=== PATIENT | male | born 1950 | race Caucasian/White ===

== ENCOUNTER 2021-05-09 10:23 | Inpatient (IN) | payer OTHER, MEDICAID, SELFPAY ==
[~2021-05-09] VITALS: Ht 180.3 cm; Wt 83.9 kg
[2021-05-09 10:33] VITALS: BP 115/81
--- NOTE | 2021-05-09 11:01 | NUR ---
ANNETTE SWAB COLLECTED AND HANDED TO BETTINA ENGEL
--- NOTE | 2021-05-09 11:30 | NUR ---
70 Y/O MALE BIB SISTER C/O RUQ ABD PAIN, VOMITING X YESTERDAY. PT STATES 10/ SHARP PAIN. NON RADIATING. SOFT NON TENDER. PMH: PROSTATE CANCER, RIGHT FUMER FRACTURE & SUGERY 3 MONTHS AGO JACQUIE
[2021-05-09 11:36] LABS: APPEARANCE,URINE CLEAR (CLEAR); BILIRUBIN,URINE 2+ (NEGATIVE); BLOOD, URINE TRACE-I (NEGATIVE); COLOR,URINE ORANGE (YELLOW); LEUKOCYTE ESTERASE ,URINE NEGATIVE (NEGATIVE); NITRITE, URINE POSITIVE (NEGATIVE); PH,URINE 5.5 (5.0-9.0); UGLUCOSE NEGATIVE (NEGATIVE)
--- NOTE | 2021-05-09 11:47 | NUR ---
BLOOD WORK COLLECTED AND HANDED TO BETTINA ENGEL
[2021-05-09 11:53] LABS: BASOPHILS % (AUTO) 0.2 % (0.0-2.0); HEMATOCRIT 39.8 % (36-52); HEMOGLOBIN 13.4 g/dL (12.0-18.0); LYMPHOCYTES # (AUTO) 0.9 K/uL (2.0-11.5); LYMPHOCYTES % (AUTO) 4.7 % (20.5-51.1); MEAN CORPUSCULAR HEMOGLOBIN 28 pg (27-31); MEAN CORPUSCULAR HGB CONC 34 g/dL (33-37); MEAN CORPUSCULAR VOLUME 84.1 fL (80-94); MONOCYTES # (AUTO) 0.8 K/uL (0.8-1.0); MONOCYTES % (AUTO) 3.9 % (1.7-9.3); NEUTROPHILS % (AUTO) 91.2 % (42.2-75.2); PLATELET COUNT (AUTO) 247 K/uL (140-450); RED BLOOD CELL COUNT(AUTO) 4.73 MIL/uL (4.20-6.10); WHITE BLOOD COUNT (AUTO) 19.7 K/uL (4.8-10.8)
[2021-05-09 12:18] LABS: ALBUMIN 3.7 g/dL (3.4-5.0); ANION GAP 14.6 (8-16); CARBON DIOXIDE 26.4 mmol/L (21-32); CREATININE 0.8 mg/dL (0.6-1.3); TOTAL BILIRUBIN 1.4 mg/dL (0.0-1.0)
[2021-05-09] MEDS ORDERED: ONDANSETRON 4 MG/2 ML VIAL IVP ONE (12:35)
[2021-05-09] MEDS ORDERED: MORPHINE SULFATE 4 MG/ML SYR IVP ONE (12:35)
[2021-05-09 13:17] LABS: RBC,URINE 0-5 /HPF (0-5); TRICHOMONAS,URINE None Seen /HPF (None Seen); WBC,URINE 0-5 /HPF (0-5); YEAST,URINE None Seen /HPF (None Seen)
[2021-05-09 13:18] LABS: CALCIUM OXALATE CRYSTALS,UR None Seen /HPF (None Seen); COARSE GRANULAR CASTS,URINE None Seen /LPF (None Seen); FINE GRANULAR CASTS,URINE None Seen /LPF (None Seen); HYALINE CASTS, URINE None Seen /LPF (None Seen); OTHER CASTS, URINE None Seen /LPF (None Seen); OTHER CRYSTALS,URINE None Seen /HPF (None Seen); RED BLOOD CELL CASTS,URINE None Seen /LPF (None Seen); TRIPLE PHOSPHATE CRYSTAL,UR None Seen /HPF (None Seen); URIC ACID CRYSTALS,URINE None Seen /HPF (None Seen); URINE AMORPHOUS URATE 1+ /HPF (None Seen); WAXY CASTS,URINE None Seen /LPF (None Seen)
[2021-05-09] MEDS ORDERED: PIPERACILLIN/TAZOBACTAM 3.375 GM in DEXTROSE 5% 50 ML IV ONE (14:05)
[2021-05-09] MEDS ORDERED: SIMV10TA1 PO (14:24)
[2021-05-09] MEDS ORDERED: TAMS0.4C96 PO (14:24)
[2021-05-09] MEDS ORDERED: APIX5TAB PO (14:24)
[2021-05-09] MEDS ORDERED: PRED5TAB7 PO (14:24)
[2021-05-09] MEDS ORDERED: ABIR250T PO (14:29)
[2021-05-09] MEDS ORDERED: BICA50TA47 PO (14:29)
[2021-05-09] MEDS ORDERED: MULT-1301 PO (14:29)
[2021-05-09] MEDS ORDERED: PIPERACILLIN/TAZOBACTAM 3.375 GM VIAL IV ONE ×2 (14:50→23:57)
[2021-05-09] MEDS ORDERED: MORPHINE SULFATE 2 MG/ML SYR IVP PRN ×2 (15:25→21:25)
[2021-05-09] MEDS ORDERED: MORPHINE SULFATE 4 MG/ML SYR IVP PRN (15:25)
--- NOTE | 2021-05-09 16:51 | NUR ---
OH AT BEDSIDE EXAMINING PT
--- NOTE | 2021-05-09 17:00 | NUR ---
ULTRASOUND AT BEDSIDE
[2021-05-09] MEDS ORDERED: NACL 0.9% 1,000 ML IV ONE (17:25)
[2021-05-09 19:07] LABS: ANION GAP 8.9 (8-16); CARBON DIOXIDE 29.7 mmol/L (21-32); CREATININE 0.8 mg/dL (0.6-1.3); POTASSIUM 3.6 mmol/L (3.5-5.1)
--- NOTE | 2021-05-09 19:15 | NUR ---
Pt report given to SHWETHA CLAY. Transfer of care at this time.
[2021-05-09 19:25] LABS: TOTAL BILIRUBIN 1.7 mg/dL (0.0-1.0)
--- NOTE | 2021-05-09 19:35 | NUR ---
report given to Jessa CLAY from OR. pt currently a/o x 4, gcs 15.
[2021-05-09] MEDS ORDERED: HYDROmorphone PFS 2 MG/ML SYR ONE (19:57)
[2021-05-09] MEDS ORDERED: PROPOFOL 200 MG/20 ML VIAL IV ONE ×2 (19:57)
[2021-05-09] MEDS ORDERED: ROCURONIUM 50 MG/5 ML VIAL IV ONE (19:57)
[2021-05-09] MEDS ORDERED: DOCUSATE SODIUM 100 MG GELCAP PO PRN (20:05)
[2021-05-09] MEDS ORDERED: ACETAMINOPHEN 325 MG TAB PO PRN (20:05)
[2021-05-09] MEDS ORDERED: ZOLPIDEM 5 MG TAB PO PRN (20:05)
[2021-05-09] MEDS ORDERED: ONDANSETRON 4 MG/2 ML VIAL IM/IVP PRN (20:05)
[2021-05-09] MEDS ORDERED: NACL 0.9% 1,000 ML IV SCH (20:05)
[2021-05-09] MEDS ORDERED: MAG SULF 2000 MG/WATER PREMIX 50 ML IV PRN (20:05)
[2021-05-09] MEDS ORDERED: POTASSIUM CHLORIDE 10 MEQ TABER PO PRN (20:05)
[2021-05-09] MEDS ORDERED: LORazepam 2 MG/ML VIAL IM/IVP PRN (20:05)
[2021-05-09] MEDS ORDERED: LIDOCAINE/EPI MPF 1%1:200000 30 ML VIAL INJ ONE (20:07)
[2021-05-09] MEDS ORDERED: BUPIVACAINE-MPF/EPI 0.25% 10 ML VIAL INJ ONE (20:07)
[2021-05-09] MEDS ORDERED: LIDOCAINE 1% 500 MG/50 ML VIAL ONE (20:09)
[2021-05-09] MEDS ORDERED: ePHEDrine 50 MG/ML VIAL ONE (20:17)
[2021-05-09] MEDS ORDERED: DEXAMETHASONE 4 MG/ML VIAL ONE (20:26)
[2021-05-09] MEDS ORDERED: METOCLOPRAMIDE 10 MG/2 ML INJ VIAL ONE (20:26)
[2021-05-09] MEDS ORDERED: ONDANSETRON 4 MG/2 ML VIAL ONE (20:26)
[2021-05-09] MEDS ORDERED: KETOROLAC 30 MG/ML VIAL ONE (20:35)
[2021-05-09] MEDS: SIMVASTATIN 10 MG TAB PO SCH (21:00)
[2021-05-09] MEDS: predniSONE 5 MG TAB PO SCH (21:00)
[2021-05-09] MEDS ORDERED: GLYCOPYRROLATE 0.2 MG/ML VIAL ONE ×2 (21:02)
[2021-05-09] MEDS ORDERED: NEOSTIGMINE 1:1000 10 MG/10 ML VIAL ONE (21:02)
[2021-05-09 21:21] LABS: CHOL/HDL RATIO 3.5 (1-4.5); THYROID STIMULATING HORMONE 0.88 uIU/mL (0.34-3.74)
[2021-05-09] MEDS ORDERED: HYDROmorphone 1 MG/ML AMP IVP PRN ×2 (21:25→21:35)
[2021-05-09] MEDS ORDERED: ONDANSETRON 4 MG/2 ML VIAL IV PRN (21:25)
[2021-05-09] MEDS ORDERED: MORPHINE SULFATE 4 MG/ML SYR IV PRN (21:25)
[2021-05-09] MEDS ORDERED: HYDROcodone/APAP 5/325 MG 1 TAB TAB PO PRN (21:25)
[2021-05-09 21:29] LABS: PROTHROMBIN TIME 10.6 secs (10.8-13.4)
[2021-05-09] MEDS: DEXT 5% / NACL 0.9% 500 ML IV SCH ×2 (21:30→23:26)
[2021-05-09] MEDS ORDERED: MEPERIDINE 25 MG/ML SYR IVP PRN (21:35)
[2021-05-09] MEDS ORDERED: ONDANSETRON 4 MG/2 ML VIAL IVP PRN (21:35)
[2021-05-09 22:12] LABS: BARBITURATE, URINE NEGATIVE ng/ml (NEG <=200); BENZODIAZEPINE, URINE NEGATIVE ng/mL (NEG <=200); CANNABINOID, URINE NEGATIVE ng/mL (NEG <=50); COCAINE, URINE NEGATIVE ng/mL (NEG <=300); OPIATE, URINE NEGATIVE ng/mL (NEG <=2000); PHENCYCLIDINE SCREEN,URINE NEGATIVE ng/mL (NEG <=25)
[2021-05-09 22:30] VITALS: BP 108/70
--- NOTE | 2021-05-09 22:30 | NUR ---
Patient's Plan of Care was discussed and reviewed with BREAD JOCKEY: FRANCISCA BELL
--- NOTE | 2021-05-09 22:30 | NUR ---
Admitted from OR TO [facility] , with chief complaint of ABDOMINAL PAIN. 70 y/o ,Male, Cooperative. VERY DROWSY, OPENS EYES WHEN WAKEN UP BUT WENT BACK AT ONCE TO SLEEP. 02 SAT - 88 - 90 %. PUT ON 02 AT 2 LITERS VIA N/C, 02 SAT INCREASED TO 98%. S/P LAP CHOLECYSTECTOMY. INCISION IN THE ABDOMEN (3) WITH BAND AID, ALL DRY AND INTACT, WITH 1 TONIO DRAINING SEROSANGUINEOUS FLUID, MODERATE AMOUNT. F/C PATENT DRAINING LIGHT TEA COLORED URINE. NO APPEARANCE OF PAIN NOTED, 0/10.oriented to call light, bed, phone,television, bathroom, smoking policy,visiting hours, procedures, ID bracelet on. Belongings list checked.
--- NOTE | 2021-05-10 | NUR ---
SLEEPING COMFORTABLY IN BED. RESPIRATION EVEN AND UNLABORED.
[2021-05-10] MEDS: PIPERACILLIN/TAZOBACTAM 3.375 GM in DEXTROSE 5% 50 ML IV SCH ×4 (00:14→21:36)
[2021-05-10] MEDS: DEXT 5% / NACL 0.9% 500 ML IV SCH (01:30)
[2021-05-10 04:00] VITALS: BP 90/55
--- NOTE | 2021-05-10 04:00 | NUR ---
EMPTY 40 ML SEROSANGUINEOUS FLUID FROM TONIO.
--- NOTE | 2021-05-10 06:30 | NUR ---
ABLE TO SLEEP WELL. CONDITION REMAIN STABLE. WILL ENDORSE TO AM SHIFT NURSE FOR CONTINUITY OF CARE.
[2021-05-10 06:32] LABS: BASOPHILS % (AUTO) 0.1 % (0.0-2.0); HEMATOCRIT 32.4 % (36-52); HEMOGLOBIN 10.9 g/dL (12.0-18.0); LYMPHOCYTES # (AUTO) 0.4 K/uL (2.0-11.5); LYMPHOCYTES % (AUTO) 3.3 % (20.5-51.1); MEAN CORPUSCULAR HEMOGLOBIN 28 pg (27-31); MEAN CORPUSCULAR HGB CONC 34 g/dL (33-37); MEAN CORPUSCULAR VOLUME 84.6 fL (80-94); MONOCYTES # (AUTO) 0.5 K/uL (0.8-1.0); NEUTROPHILS # (AUTO) 12.3 K/uL (1.8-7.7); NEUTROPHILS % (AUTO) 92.6 % (42.2-75.2); PLATELET COUNT (AUTO) 166 K/uL (140-450); RED BLOOD CELL COUNT(AUTO) 3.83 MIL/uL (4.20-6.10); RED CELL DISTRIBUTION WIDTH 17.3 % (11.6-13.7); WHITE BLOOD COUNT (AUTO) 13.3 K/uL (4.8-10.8)
[2021-05-10] MEDS ORDERED: PIPERACILLIN/TAZOBACTAM 3.375 GM VIAL IV ONE (06:46)
[2021-05-10] MEDS ORDERED: DEXT 5% /NACL 0.9% 1,000 ML IV SCH (07:10)
--- NOTE | 2021-05-10 07:30 | NUR ---
RECEIVED REPORT FROM P[employer]ER [employer]ODUCTS PRINTER NURSE FOR CONTINUITY OF CARE. PT IN BED SLEEPING AT THIS TIME. RESPIRATIONS ARE EVEN AND UNLABORED. PT IS ON 2L 02 VIA NC. NO SIGNS OF DISTRESS NOTED. NO SIGNS OF PAIN OR DISCOMFORT NOTED AT THIS TIME. PT HAS 3 INCISIONS TO ABD COVERED, AND TONIO DRAIN TO R SIDE, PT IS S/P LAPCHOLE. PT HAS HUGGINS CATHETER IN PLACE. DRAINING YELLOW FLUID. NO COMPLAINTS OF DISCOMFORT. PT ABLE TO VERBALIZE NEEDS TO STAFF. CALL LIGHT WITHIN REACH. ALL SAFETY MEASURES IN PLACE. WILL CONTINUE TO MONITOR.
[2021-05-10 08:00] VITALS: BP 101/56
--- NOTE | 2021-05-10 08:00 | NUR ---
Patient's Plan of Care was discussed and reviewed with POKER ROOM MANAGER: VIOLET SHIPLEY.
[2021-05-10 08:17] LABS: ALBUMIN 2.7 g/dL (3.4-5.0); ANION GAP 13.3 (8-16); CARBON DIOXIDE 25.7 mmol/L (21-32); CREATININE 0.9 mg/dL (0.6-1.3); TOTAL BILIRUBIN 1.5 mg/dL (0.0-1.0)
[2021-05-10] MEDS: TAMSULOSIN 0.4 MG CAP PO SCH (08:45)
[2021-05-10] MEDS: predniSONE 5 MG TAB PO SCH ×2 (08:45→21:35)
--- NOTE | 2021-05-10 08:47 | NUR ---
ADMINISTERED ALL SCHEDULED MEDICATIONS. EDUCATED PT REGARDING MEDS ADMINISTERED. ANSWERED ALL QUESTIONS. WILL CONTINUE TO MONITOR.
[2021-05-10] MEDS ORDERED: MULTIVITAMIN PO SCH (09:00)
[2021-05-10] MEDS ORDERED: APIXABAN 2.5 MG TAB PO SCH (09:00)
--- NOTE | 2021-05-10 10:04 | NUR ---
PATIENT HAS BEEN SCREENED AND CATEGORIZED MODERATE NUTRITION RISK. PATIENT WILL BE SEEN WITHIN 3-5 DAYS OF ADMISSION. [address]
[2021-05-10] MEDS: NACL 0.9% 1,000 ML IV SCH (11:25)
--- NOTE | 2021-05-10 11:51 | NUR ---
HUGGINS CATHETER REMOVED. PT TOLERATED WELL. WILL CONTINUE TO MONITOR.
--- NOTE | 2021-05-10 12:14 | NUR ---
PT FAMILY BROUGHT PERSONAL MEDICATIONS FROM HOME. MEDS TAKEN TO PHARMACY, WILL BE INVENTORIED AND KEPT IN PHARMACY. INFORMED PT AND FAMILY.
--- NOTE | 2021-05-10 15:42 | NUR ---
DID ROUNDS ON PT. PT RESTING AT THIS TIME. RESPIRATIONS ARE EVEN AND UNLABORED. NO SIGNS OF DISTRESS NOTED. WILL CONTINUE TO MONITOR.
[2021-05-10 16:00] VITALS: BP 107/64
--- NOTE | 2021-05-10 17:56 | NUR ---
PT CALLED STATED HE WOULD LIKE HIS TONIO DRAINED AGAIN. EMPTIED TONIO. ALSO EMPTIED PT URINAL. AT THIS TIME PT URINE OUTPUT IS 600. WILL CONTINUE TO MONITOR.
--- NOTE | 2021-05-10 18:25 | NUR ---
PT CALLED AND ASKED IF HE COULD BE DISCONNECTED FROM IV FLUIDS FOR A LITTLE WHILE. STATED HE WAS TIRED OF BEING CONNECTED. WILL CONTINUE TO MONITOR.
--- NOTE | 2021-05-10 18:54 | NUR ---
PT IN BED AT THIS TIME. RESPIRATIONS ARE EVEN AND UNLABORED. NO SIGNS OF DISTRESS NOTED. ALL NEEDS MET THROUGHOUT SHIFT. PT IS STABLE. WILL ENDORSE TO LICENSING SPECIALIST NURSE.
--- NOTE | 2021-05-10 19:30 | NUR ---
RECEIVED BEDSIDE REPORT FROM DAY SHIFT RN FOR CONTINUITY OF CARE. PT IS AWAKE IN BED ON NC 2L. FOOD BY BEDSIDE. PT IS NOT IN ANY DISTRESS. BREATHING RHYTHMIC AND UNLABORED. CALL LIGHT WITHIN REACH. ALL SAFETY MEASURES TAKEN. WILL CONTINUE TO MONITOR THE PT.
[2021-05-10 20:00] VITALS: BP 100/60
[2021-05-10] MEDS: SIMVASTATIN 10 MG TAB PO SCH (21:35)
--- NOTE | 2021-05-10 21:40 | NUR ---
ALL DUE MEDS GIVEN. NO ADVERSE REACTION NOTED. WILL CONTINUE TO MONITOR THE PT.
--- NOTE | 2021-05-11 01:30 | NUR ---
PT IS SLEEPING COMFORTABLY. PT IS NOT IN ANY DISTRESS. BREATHING RHYTHMIC AND UNLABORED. CALL LIGHT WITHIN REACH. ALL SAFETY MEASURES TAKEN. WILL CONTINUE TO MONITOR THE PT.
[2021-05-11 04:00] VITALS: BP 124/68
[2021-05-11] MEDS: NACL 0.9% 1,000 ML IV SCH ×2 (04:05→20:45)
[2021-05-11] MEDS: PIPERACILLIN/TAZOBACTAM 3.375 GM in DEXTROSE 5% 50 ML IV SCH ×3 (05:02→21:54)
--- NOTE | 2021-05-11 05:10 | NUR ---
ALL DUE MEDS GIVEN. NO ADVERSE REACTION NOTED. WILL CONTINUE TO OBSERVE THE PT.
--- NOTE | 2021-05-11 07:15 | NUR ---
RECEIVED PT FROM NIGHT RN, PT IS AWAKE AND LYING ON THE BED WITH SIDE RAILS UP AND CALL LIGHT WITHIN REACH, IV LINE NOTED ON THE LAC G. 20 WITH IVF NS INFUSING AT 60ML/HR, PT IS S/P CHOLECYSTECTOMY, POD #2, 2 ABDOMINAL INCISIONS NOTED, INTACT AND DRY, TONIO BULB IN PLACE, DRAINED 35ML, PT IS ON O2 2L NC, NO SIGN OF DISTRESS NOTED AND WILL CONTINUE TO MONITOR PT.
[2021-05-11 08:00] VITALS: BP 133/69
[2021-05-11 09:07] LABS: T4 (THYROXINE) 9.9 ug/dL (4.5-12.0)
[2021-05-11] MEDS: predniSONE 5 MG TAB PO SCH ×2 (10:17→21:51)
[2021-05-11] MEDS: TAMSULOSIN 0.4 MG CAP PO SCH (10:17)
[2021-05-11] MEDS: PANTOPRAZOLE 40 MG TABEC PO SCH (10:17)
--- NOTE | 2021-05-11 10:17 | NUR ---
PT WAS GIVEN THE SCHEDULED AM MEDICATIONS NOW.
--- NOTE | 2021-05-11 10:18 | NUR ---
PT VERBALIZED NOW THAT HE HAD PASS GAS ALREADY.
--- NOTE | 2021-05-11 13:50 | NUR ---
PT WAS GIVEN IVPB ZOSYN NOW.
[2021-05-11 16:00] VITALS: BP 124/68
--- NOTE | 2021-05-11 19:50 | NUR ---
ENDORSED PT TO NIGHT RN FOR CONTINUITY OF CARE.
--- NOTE | 2021-05-11 19:51 | NUR ---
RECEIVED REPORT FROM AM SHIFT NURSE FOR CONTINUITY OF CARE. PATIENT IN BED WITH SISTER JARED ON BEDSIDE. AWAKE, ALERT AND VERBALLY RESPONSIVE IN [place]. NOT IN DISTRESS. DENIES ANY PAIN OR DISCOMFORT AT THIS TIME. ALL SAFETY MEASURES IN PLACE. CALL LIGHT WITHIN REACH. WILL CONTINUE WITH CURRENT PLAN OF CARE.
[2021-05-11] MEDS: SIMVASTATIN 10 MG TAB PO SCH (21:51)
--- NOTE | 2021-05-11 21:52 | NUR ---
ADMINISTERED ALL DUE MEDICATIONS PER MD ORDER. TOLERATED WELL. NO ASE NOTED.
--- NOTE | 2021-05-11 23:55 | NUR ---
CHECKED ON PATIENT. PATIENT ASLEEP. BREATHING EVEN AND UNLABORED WITH NO SOB NOTED. NOT IN DISTRESS. ALL SAFETY MEASURES IN PLACE. CALL LIGHT WITHIN REACH. WILL CONTINUE TO MONITOR.
--- NOTE | 2021-05-12 02:20 | NUR ---
PATIENT ASLEEP. BREATHING EVEN AND UNLABORED WITH NO SOB NOTED. CALL LIGHT WITHIN REACH. WILL CONTINUE TO MONITOR.
[2021-05-12 04:00] VITALS: BP 135/76
[2021-05-12] MEDS: PIPERACILLIN/TAZOBACTAM 3.375 GM in DEXTROSE 5% 50 ML IV SCH ×3 (05:37→20:22)
--- NOTE | 2021-05-12 05:50 | NUR ---
CHECKED ON PATIENT. SOUNDS ASLEEP. VISIBLE CHEST RISING AND FALLING. CALL LIGHT WITHIN REACH. WILL CONTINUE TO MONITOR.
--- NOTE | 2021-05-12 07:32 | NUR ---
ENDORSED PATIENT REPORT TO AM SHIFT NURSE FOR CONTINUITY OF CARE. PATIENT IS STABLE.
--- NOTE | 2021-05-12 07:37 | NUR ---
RECEIVED PT FROM NIGHT RN, PT IS AWAKE AND LYING ON THE BED WITH SIDE RAILS UP AND CALL LIGHT WITHIN REACH, IV LINE NOTED ON THE LAC G. 20 WITH IVF NS INFUSING AT 60ML/HR, PT IS S/P CHOLECYSTECTOMY, POD #3, 2 ABDOMINAL INCISIONS NOTED, INTACT AND DRY, TONIO BULB IN PLACE, PT IS ON O2 2L NC, NO SIGN OF DISTRESS NOTED AND WILL CONTINUE TO MONITOR PT.
[2021-05-12 08:00] VITALS: BP 152/101
[2021-05-12] MEDS: PANTOPRAZOLE 40 MG TABEC PO SCH (09:04)
[2021-05-12] MEDS: predniSONE 5 MG TAB PO SCH (09:04)
[2021-05-12] MEDS: TAMSULOSIN 0.4 MG CAP PO SCH (09:04)
--- NOTE | 2021-05-12 09:04 | NUR ---
PT WAS GIVEN THE SCHEDULED AM MEDICATIONS NOW.
--- NOTE | 2021-05-12 12:34 | NUR ---
PT WAS GIVEN IVPB ZOSYN NOW.
[2021-05-12] MEDS: NACL 0.9% 1,000 ML IV SCH (13:25)
[2021-05-12 16:00] VITALS: BP 140/86
[2021-05-12 17:21] LABS: BASOPHILS % (AUTO) 0.6 % (0.0-2.0); EOSINOPHILS # (AUTO) 0.1 K/uL (0-0.4); EOSINOPHILS % (AUTO) 1.5 % (0.0-4.0); HEMOGLOBIN 10.4 g/dL (12.0-18.0); LYMPHOCYTES # (AUTO) 1.3 K/uL (2.0-11.5); LYMPHOCYTES % (AUTO) 25.1 % (20.5-51.1); MEAN CORPUSCULAR HEMOGLOBIN 28 pg (27-31); MEAN CORPUSCULAR HGB CONC 34 g/dL (33-37); MEAN CORPUSCULAR VOLUME 84.5 fL (80-94); MONOCYTES # (AUTO) 0.3 K/uL (0.8-1.0); MONOCYTES % (AUTO) 6.1 % (1.7-9.3); NEUTROPHILS # (AUTO) 3.6 K/uL (1.8-7.7); NEUTROPHILS % (AUTO) 66.7 % (42.2-75.2); PLATELET COUNT (AUTO) 268 K/uL (140-450); RED BLOOD CELL COUNT(AUTO) 3.67 MIL/uL (4.20-6.10); WHITE BLOOD COUNT (AUTO) 5.4 K/uL (4.8-10.8)
[2021-05-12 17:36] LABS: ALBUMIN 2.6 g/dL (3.4-5.0); ANION GAP 12.5 (8-16); CARBON DIOXIDE 28.6 mmol/L (21-32); CREATININE 0.7 mg/dL (0.6-1.3); POTASSIUM 4.1 mmol/L (3.5-5.1); TOTAL BILIRUBIN 0.3 mg/dL (0.0-1.0)
--- NOTE | 2021-05-12 17:45 | NUR ---
TONIO DRAIN WAS REMOVED NOW.
[2021-05-12] MEDS: SIMVASTATIN 10 MG TAB PO SCH (20:22)
[2021-05-12 20:24] VITALS: BP 136/76
[2021-05-12 20:33] VITALS: BP 150/79
--- NOTE | 2021-05-12 21:20 | NUR ---
dc'd to home via wheelchair accompanied by sister . VSS denies pain SOB. discharge instructions given to patient and his sister, verbalized well understanding. iv site dc'd ..abdominal lap sites dressing c/d/i dc'd lisa site dressing c/d/i. patiient belongings and paper works sent with patient.
[2021-05-13] MEDS ORDERED: BICALUTAMIDE 50 MG TAB PO SCH (09:00)
== END 2021-05-12 21:20 | disposition home or self-care (01) | DRG 853 ==
LOC: MED 10:23 → MMU 15:40 → MTU 18:35
PROC: 0D9W40Z Drainage of Peritoneum with Drainage Device, Percutaneous Endoscopic Approach (ICD-10-PCS; 2021-05-09)
PROC: 0FT44ZZ Resection of Gallbladder, Percutaneous Endoscopic Approach (ICD-10-PCS; principal; 2021-05-09 18:45)
DX: A41.9 Sepsis, unspecified organism (principal); K65.3 Choleperitonitis; E87.1 Hypo-osmolality and hyponatremia; C79.51 Secondary malignant neoplasm of bone; K82.A1 Gangrene of gallbladder in cholecystitis; K29.80 Duodenitis without bleeding; K46.9 Unspecified abdominal hernia without obstruction or gangrene; K40.90 Unilateral inguinal hernia, without obstruction or gangrene, not specified as recurrent; I51.7 Cardiomegaly; I89.0 Lymphedema, not elsewhere classified; E78.5 Hyperlipidemia, unspecified; E80.6 Other disorders of bilirubin metabolism; Z20.822 Contact with and (suspected) exposure to COVID-19; D18.09 Hemangioma of other sites; R65.20 Severe sepsis without septic shock; C61 Malignant neoplasm of prostate; Z86.718 Personal history of other venous thrombosis and embolism; Z95.828 Presence of other vascular implants and grafts; Z79.01 Long term (current) use of anticoagulants; Z79.899 Other long term (current) drug therapy
CPT/HCPCS: 36415; 76705; 80053; 80305; 81001; 82374; 83036; 83605; 83690; 83880; 84134; 84436; 84443; 85025; 85610; 85730; 86886; 86900; 86901; 87040; 87081; 88304; 93005; 93970; 96361; 96365; 96375; 97116; 97163-GP; 97530; 99291; J1100; J1170; J1885; J2001; J2270; J2405; J2543; J2704; J2710; J2765; J3490; J7030; J7060; J7512; Q0092; Q9967